=== PATIENT | female | born 1975 | race Two or more races ===

== ENCOUNTER 2017-10-16 08:28 | Outpatient (CLI) | payer OTHER | END 2017-10-16 08:40 | disposition home or self-care (01) | LOC: MAMO-SONO 08:28 | DX: Z12.31 Encounter for screening mammogram for malignant neoplasm of breast (principal); N64.4 Mastodynia; N60.11 Diffuse cystic mastopathy of right breast ==

== ENCOUNTER 2018-03-26 14:52 | Outpatient (CLI) | payer OTHER | END 2018-03-26 15:42 | disposition home or self-care (01) | LOC: RAD 501 14:52 | DX: M54.2 Cervicalgia (principal); M54.12 Radiculopathy, cervical region ==

== ENCOUNTER → 2018-10-18 | Outpatient (CLI) | payer OTHER | END | disposition home or self-care (01) | LOC: MAMO-SONO 07:45 | DX: Z12.31 Encounter for screening mammogram for malignant neoplasm of breast (principal); N60.11 Diffuse cystic mastopathy of right breast; N64.4 Mastodynia; N63.10 Unspecified lump in the right breast, unspecified quadrant; N63.20 Unspecified lump in the left breast, unspecified quadrant ==

== ENCOUNTER 2019-12-10 14:24 | Outpatient (CLI) | payer OTHER | END 2019-12-10 14:41 | disposition home or self-care (01) | LOC: MAMO-SONO 14:24 | PROVIDERS: ATTEND Obstetrics & Gynecology Maternal & Fetal Medicine | DX: Z12.31 Encounter for screening mammogram for malignant neoplasm of breast (principal); N63.10 Unspecified lump in the right breast, unspecified quadrant; N63.20 Unspecified lump in the left breast, unspecified quadrant; N64.4 Mastodynia; N60.11 Diffuse cystic mastopathy of right breast ==

== ENCOUNTER 2021-01-13 08:00 | Outpatient (CLI) | payer OTHER | END 2021-01-13 08:19 | disposition home or self-care (01) | LOC: MAMO-SONO 08:00 | PROVIDERS: ATTEND Obstetrics & Gynecology Maternal & Fetal Medicine | DX: N60.11 Diffuse cystic mastopathy of right breast (principal); Z12.31 Encounter for screening mammogram for malignant neoplasm of breast; N64.4 Mastodynia ==

== ENCOUNTER 2022-01-25 12:51 | Outpatient (CLI) | payer OTHER | END 2022-01-25 13:01 | disposition home or self-care (01) | LOC: MAMO-SONO 12:51 | PROVIDERS: ATTEND Obstetrics & Gynecology Maternal & Fetal Medicine | DX: N63.0 Unspecified lump in unspecified breast (principal); N64.4 Mastodynia; N60.11 Diffuse cystic mastopathy of right breast; Z12.31 Encounter for screening mammogram for malignant neoplasm of breast ==

== ENCOUNTER 2022-12-12 08:12 | Outpatient (CLI) | payer OTHER | END 2022-12-12 08:13 | disposition home or self-care (01) | LOC: NUCLEAR 08:12 | PROVIDERS: ATTEND Internal Medicine Cardiovascular Disease | DX: R07.9 Chest pain, unspecified (principal) ==